=== PATIENT | female | born 1990 | race Caucasian/White ===

== ENCOUNTER 2016-10-10 15:11 | Emergency (ER) | payer SELFPAY ==
[~2016-10-10] VITALS: Ht 165.1 cm; Wt 99.8 kg
[~2016-10-10 15:11] MED LIST: BENZ200C39 PO; DOXY100C2 PO; OXYC-323 PO; PRED20TA PO; PROAIR HFA8.5 GM INH
[2016-10-10 15:15] VITALS: BP 155/89
[2016-10-10] MEDS ORDERED: BUPIVACAINE 0.5% 50 ML VIAL. IJ ONE (16:45)
[2016-10-10] MEDS ORDERED: HYDR-971 PO (17:18)
--- NOTE | 2016-10-10 17:18 | PHYS DOC ---
Past Medical History Past Medical History: Other Additional Past Medical Histor: labial abscesses, ovarian cysts Past Surgical History: No Surgical History Alcohol Use: Occasionally Drug Use: None Adult General Chief Complaint Chief Complaint: ABSCESS HPI HPI Patient is a 26 year old female who presents with a Bartholin's cyst to the left labia for 3 days. Patient has history of Bartholin's cyst. Review of Systems Review of Systems Constitutional: Denies fever or chills [] Eyes: Denies change in visual acuity, redness, or eye pain [] HENT: Denies nasal congestion or sore throat [] Musculoskeletal: Denies back pain or joint pain [] Integument: Bathroom cyst of the left labia Neurologic: Denies headache, focal weakness or sensory changes [] Endocrine: Denies polyuria or polydipsia [] Current Medications Current Medications Current Medications Medications (Trade) Dose Ordered Sig/Martir Start Time Stop Time Status Last Admin Dose Admin Bupivacaine HCl (Marcaine 0.5%) 50 ml 1X ONCE 10/10/16 16:45 10/10/16 16:46 DC 10/10/16 16:32 50 ML Allergies Allergies Allergies Coded Allergies Type Severity Reaction Last Updated Verified sulfamethoxazole Allergy Intermediate Hives 10/10/16 Yes trimethoprim Allergy Intermediate Hives 10/10/16 Yes hydrocodone Adverse Reaction Unknown Excessive vomiting. 10/10/16 Yes Physical Exam Physical Exam Constitutional: Well developed, well nourished, no acute distress, non-toxic appearance. [] HENT: Normocephalic, atraumatic, bilateral external ears normal, oropharynx moist, no oral exudates, nose normal. [] Skin: left labia is moderately indurated consistent with a Bartholin's cyst. There is no erythema to the area. No warmth to the area. Back: No tenderness, no CVA tenderness. [] Extremities: No tenderness, no cyanosis, no clubbing, ROM intact, no edema. [] Neurologic: Alert and oriented X 3, normal motor function, normal sensory function, no focal deficits noted. [] Psychologic: Affect normal, judgement normal, mood normal. [] Current Patient Data Vital Signs Vital Signs Date Time Temp Pulse Resp B/P Pulse Ox O2 Delivery O2 Flow Rate FiO2 10/10/16 15:15 98.6 109 18 99 Room Air 98.6 EKG EKG [] Radiology/Procedures Radiology/Procedures Indication: left labial Bartholin cyst Procedure: The patient was placed in the appropriate position and anesthesia around the system 0.5% of bupivacaine. The area was cleaned with the 100 ML of normal saline and Betadine. 11 blade was used to open up the cyst, moderate amount of yellow nonpurulent material was drained. Bartholin's cyst catheter was placed. Course & Med Decision Making Course & Med Decision Making Pertinent Labs and Imaging studies reviewed. (See chart for details) Patient has a Bartholin's cyst to the left labia that was drained and Bartholin cyst catheter applied by me. Her tetanus is up-to-date. The area does not look infected. Instructed patient to keep the area clean and dry. Follow-up with the ED in 2 days for catheter removal as well as wound check. Dragon Disclaimer Dragon Disclaimer This electronic medical record was generated, in whole or in part, using a voice recognition dictation system. Departure Departure Impression: Primary Impression: Bartholin cyst Disposition: HOME, SELF-CARE Condition: STABLE Referrals: NO PCP (PCP) Follow-up with the ED in 2 days for wound check and Bartholin cyst catheter removal Patient Instructions: Bartholin's Cyst or Abscess Additional Instructions: You have a left labial Bartholin cyst that was drained in the emergency room. We did put a Bartholin cyst catheter in the area. Keep the area clean and dry. You can shower. Come back to the ED in 2 days and we will remove the catheter as well as assess the wound to make sure it's healing okay. Take the prescribed pain medicines as needed. Scripts Hydrocodone/Apap 5-325 (Harts 5-325 Tablet)1 Each Tablet1-2 Tab PO Q4-6HRS #20 TAB Prov:LIANA JOHNS APRN 10/10/16 LIANA JOHNS APRN Oct 10, 2016 17:18
== END 2016-10-10 17:28 | disposition home or self-care (01) ==
LOC: ER 15:11
DX: N75.0 Cyst of Bartholin's gland (principal); Z88.1 Allergy status to other antibiotic agents; Z88.5 Allergy status to narcotic agent; Z88.2 Allergy status to sulfonamides
CPT/HCPCS: 56420; 99284; J3490

== ENCOUNTER 2016-10-12 10:03 | Emergency (ER) | payer SELFPAY ==
[~2016-10-12] VITALS: Ht 165.1 cm; Wt 99.8 kg
[~2016-10-12 10:03] MED LIST changes: +HYDR-971 PO
[2016-10-12 10:42] VITALS: BP 143/80
[2016-10-12] MEDS ORDERED: HYDR-971 PO (11:22)
--- NOTE | 2016-10-12 11:22 | PHYS DOC ---
Past Medical History Past Medical History: No Pertinent History Additional Past Medical Histor: labial abscesses, ovarian cysts Past Surgical History: No Surgical History Smoking: Less than 1pk/day Alcohol Use: Occasionally Drug Use: None Adult General Chief Complaint Chief Complaint: WOUND RECHECK/SUTURE REMOVAL [facility] HPI Patient is a 26 year old female who presents for wound recheck of left labial Bartholin's cyst. The patient was seen here 2 days ago with incision and drainage and placement of a Word catheter. She was instructed to return today for wound recheck and catheter removal. She states that the catheter is very uncomfortable, particularly when she is sitting. She denies any fevers. She does not have a primary care doctor or a [facility] doctor. She tried to schedule an appointment with a coining press operator at [facility] [place] but was unable to be seen until the end of October. Review of Systems Review of Systems Constitutional: Denies fever or chills. [] GI: Denies abdominal pain, nausea, vomiting, bloody stools or diarrhea. [] : Denies dysuria, hematuria or urinary frequency. Reports left labial Bartholin's cyst. Musculoskeletal: Denies back pain or joint pain. [] Integument: Denies rash or skin lesions. Reports left labial Bartholin's cyst. Neurologic: Denies headache, focal weakness or sensory changes. [] All systems reviewed and negative unless otherwise stated in the HPI. Allergies Allergies Allergies Coded Allergies Type Severity Reaction Last Updated Verified sulfamethoxazole Allergy Intermediate Hives 10/10/16 Yes trimethoprim Allergy Intermediate Hives 10/10/16 Yes hydrocodone Adverse Reaction Unknown Excessive vomiting. 10/10/16 Yes Physical Exam Physical Exam Constitutional: Well developed, well nourished, no acute distress, non-toxic appearance. [] HENT: Normocephalic, atraumatic, oropharynx moist. [] Eyes: PERRLA, EOMI, conjunctiva normal, no discharge. [] Neck: Normal range of motion, no tenderness, supple, no stridor. [] Cardiovascular: Heart rate regular rhythm, no murmur. [] Lungs & Thorax: Bilateral breath sounds clear to auscultation without wheezes, rales, or rhonchi. [] Abdomen: Bowel sounds normal, soft, no tenderness, no masses, no pulsatile masses. [] Female : There is a left labial Bartholin's cyst with Word catheter in place. There is no surrounding erythema or induration. There is no drainage. Skin: Warm, dry, no erythema, no rash. See female . Neurologic: Alert and oriented X 3, normal motor function, normal sensory function, no focal deficits noted. [] Psychologic: Affect normal, judgement normal, mood normal. [] Current Patient Data Vital Signs Vital Signs Date Time Temp Pulse Resp B/P Pulse Ox O2 Delivery O2 Flow Rate FiO2 10/12/16 10:42 98.2 84 18 93 Room Air 98.2 EKG EKG [] Radiology/Procedures Radiology/Procedures [] Course & Med Decision Making Course & Med Decision Making Pertinent Labs and Imaging studies reviewed. (See chart for details) The patient presents for wound recheck of left Bartholin's cyst with word catheter in place. The wound reveals good healing without surrounding erythema or induration. There is no drainage from the wound. The catheter remains in place. I informed the patient that they catheter needs to stay in place for 4-6 weeks. She needs to follow-up with a coining press operator to have the catheter removed. She is unable to see a coining press operator until the end of October. She is instructed to schedule and keep this appointment, as this will be catheter removal. She is discharged home with a refill of Caroline. She is instructed to use sparingly and to take a stool softener with the pain medication. Return precautions were discussed. She verbalizes understanding and agrees with plan. Jose Manuelon Disclaimer Jose Manuelon Disclaimer This electronic medical record was generated, in whole or in part, using a voice recognition dictation system. Departure Departure Impression: Primary Impression: Wound check, abscess Additional Impression: Bartholin cyst Disposition: 01 HOME, SELF-CARE Condition: STABLE Referrals: NO PCP (PCP) Patient Instructions: Bartholin's Cyst and Abscess-Brief, Wound Check Additional Instructions: You were seen for wound recheck of your Bartholin's cyst. The catheter needs to stay in place for 4-6 weeks. Please schedule an appointment with a coining press operator to have the catheter removed. Please take the prescribed pain medication as directed. Do not drive or operate heavy machinery while taking pain medication. Return to the emergency department if you have any new or concerning symptoms. Scripts Hydrocodone/Apap 5-325 (Caroline 5-325 Tablet)1 Each Tablet1 Tab PO PRN Q6HRS PRN PAIN #20 TAB Prov:HOMERO AUGUSTE 10/12/16 Problem Qualifiers HOMERO AUGUSTE Oct 12, 2016 11:22
== END 2016-10-12 11:41 | disposition home or self-care (01) ==
LOC: ER 10:03
DX: Z48.01 Encounter for change or removal of surgical wound dressing (principal); N75.0 Cyst of Bartholin's gland; F17.200 Nicotine dependence, unspecified, uncomplicated; Z88.1 Allergy status to other antibiotic agents; Z88.5 Allergy status to narcotic agent
CPT/HCPCS: 99283

== ENCOUNTER 2017-06-06 18:36 | Emergency (ER) | payer SELFPAY ==
[~2017-06-06] VITALS: Ht 165.1 cm; Wt 99.8 kg
[~2017-06-06 18:36] MED LIST changes: -BENZ200C39 PO; +BENZ200C47 PO
[2017-06-06] MEDS ORDERED: hydrOXYzine PAMOATE 25 MG CAPSULE PO STA (19:19)
--- NOTE | 2017-06-06 19:29 | PHYS DOC ---
Past Medical History Past Medical History: Other Additional Past Medical Histor: labial abscesses, ovarian cysts Past Surgical History: No Surgical History Alcohol Use: Occasionally Drug Use: None Adult General Chief Complaint Chief Complaint: ANXIETY/PANIC ATTACK HPI HPI Patient is a 27 year old female who presents with complaint of chest pain. Patient states that she has had pain in the middle of her chest over the past 4 hours. The patient states that she is also had dry mouth and has been having hyperventilation. The patient states that she unfortunately lost her father approximately 1 month ago. Patient states that she has had history of anxiety, however since her father's passing and has gotten much worse. The patient states that she has not slept over the past 2 days. Patient has tried taking Benadryl at home with no relief in symptoms. Patient denies any significant past medical history of cardiac disease and denies heart disease in any young members of her family. The patient does state that she feels anxious and states that she thinks this is likely contributing to her current symptoms, however she came to the emergency department to be checked out to make sure she did not have anything possibly life-threatening causing her symptoms. Patient states that she has been under a significant amount of stress at home and does admit that she has not had not time to be able to deal with her emotions in regard to her father passing. Review of Systems Review of Systems Constitutional: Anxiety, insomnia, denies fever or chills [] Eyes: Denies change in visual acuity, redness, or eye pain [] HENT: Dry mouth, denies nasal congestion or sore throat [] Respiratory: Denies cough or shortness of breath [] Cardiovascular: Chest pain[] GI: Denies abdominal pain, nausea, vomiting, bloody stools or diarrhea [] : Denies dysuria or hematuria [] Musculoskeletal: Denies back pain or joint pain [] Integument: Denies rash or skin lesions [] Neurologic: Denies headache, focal weakness or sensory changes [] All other systems were reviewed and found to be within normal limits, except as documented in this note. Current Medications Current Medications Current Medications Medications (Trade) Dose Ordered Sig/Martir Start Time Stop Time Status Last Admin Dose Admin Hydroxyzine Pamoate (Vistaril) 25 mg 1X STAT 06/06/17 19:19 06/06/17 19:21 DC 06/06/17 19:25 25 MG Allergies Allergies Allergies Coded Allergies Type Severity Reaction Last Updated Verified sulfamethoxazole Allergy Intermediate Hives 10/10/16 Yes trimethoprim Allergy Intermediate Hives 10/10/16 Yes hydrocodone Adverse Reaction Unknown Excessive vomiting. 10/10/16 Yes Physical Exam Physical Exam Constitutional: Alert, afebrile, tearful, anxious. [] HENT: Normocephalic, atraumatic, bilateral external ears normal, oropharynx moist, no oral exudates, nose normal. [] Eyes: PERRLA, EOMI, conjunctiva normal, no discharge. [] Neck: Normal range of motion, no tenderness, supple, no stridor. [] Cardiovascular:Heart rate regular rhythm, no murmur [] Lungs & Thorax: Bilateral breath sounds clear to auscultation [] Abdomen: Bowel sounds normal, soft, no tenderness, no masses, no pulsatile masses. [] Skin: Warm, dry, no erythema, no rash. [] Back: No tenderness, no CVA tenderness. [] Extremities: No tenderness, no cyanosis, no clubbing, ROM intact, no edema. [] Neurologic: Alert and oriented X 3, normal motor function, normal sensory function, no focal deficits noted. [] Current Patient Data Vital Signs Vital Signs Date Time Temp Pulse Resp B/P (MAP) Pulse Ox O2 Delivery O2 Flow Rate FiO2 06/06/17 19:45 79 141/77 (98) 98 Room Air 06/06/17 18:51 98.1 16 98.1 Lab Values Laboratory Tests Test 06/06/17 19:42 POC Urine HCG, Qualitative Hcg negative (Negative) EKG EKG Interpreted by me: Heart rate 91, sinus rhythm, normal intervals, normal axis, no acute ST/T-wave abnormalities present[] Radiology/Procedures Radiology/Procedures Two-view chest x-ray interpreted by me: No infiltrate, no effusions, normal cardiac silhouette[] Course & Med Decision Making Course & Med Decision Making Pertinent Labs and Imaging studies reviewed. (See chart for details) Patient's EKG and chest x-ray were unremarkable. Patient's HEART score is 0. Vital signs are stable. The patient's symptoms appear consistent with anxiety. I sat and spoke with the patient extensively regarding her symptoms and the recent loss of her father. We discussed possible coping mechanisms and a plan of care upon discharge from the emergency department. The patient denied suicidal or homicidal ideation. The patient was administered hydroxyzine to help with anxiety in the emergency department. Patient will be continued on outpatient treatment. Patient also referred to [facility] family practice for primary care follow-up. Advised follow-up in 5-7 days for reevaluation and recommended return to the emergency department for any worsening symptoms. Patient voiced understanding and in agreement with treatment plan. Dragon Disclaimer Dragon Disclaimer This electronic medical record was generated, in whole or in part, using a voice recognition dictation system. Departure Departure Impression: Primary Impression: Anxiety Disposition: HOME, SELF-CARE Condition: IMPROVED Referrals: NO PCP (PCP) Patient Instructions: Anxiety and Panic Attacks Additional Instructions: Follow-up with your primary doctor in 5-7 days for reevaluation. Return to the emergency department for any worsening symptoms. Scripts Hydroxyzine Pamoate (HYDROXYZINE PAMOATE) 25 Mg Capsule 25 MG PO QID Y for ANXIETY / AGITATION, #30 CAP Prov: JOEL HENDRICKS MD 06/06/17 JOEL HENDRICKS MD Jun 06, 2017 19:29
[2017-06-06 19:45] VITALS: BP 141/77
[2017-06-06] MEDS ORDERED: HYDR25CA75 PO (20:18)
--- NOTE | 2017-06-07 06:37 | EKG ---
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
--- NOTE | 2017-06-07 07:42 | RAD ---
Chest, 2 views, 06/06/2017: History: Midsternal chest pain The heart size and pulmonary vascularity are normal. No pulmonary infiltrates are seen. There is no evidence of pleural fluid. IMPRESSION: No acute cardiopulmonary abnormality is detected.
== END 2017-06-06 20:28 | disposition home or self-care (01) ==
LOC: ER 18:36
DX: F41.9 Anxiety disorder, unspecified (principal); R07.89 Other chest pain; R68.2 Dry mouth, unspecified; R06.4 Hyperventilation; Z88.1 Allergy status to other antibiotic agents; Z88.2 Allergy status to sulfonamides; Z88.5 Allergy status to narcotic agent
CPT/HCPCS: 71020; 81025; 93005; 99284; Q0177

== ENCOUNTER 2018-01-14 04:25 | Emergency (ER) | payer SELFPAY ==
[2018-01-14 04:54] LABS: URINE HCG POC HCG NEGATIVE (Negative)
[2018-01-14 06:03] LABS: BILIRUBIN,URINE NEGATIVE (NEG); CLARITY,URINE CLEAR; COLOR,URINE YELLOW; GLUCOSE,URINE NEGATIVE (NEG); NITRITE,URINE NEGATIVE (NEG); PH,URINE 7.5; PROTEIN,URINE NEGATIVE (NEG-TRACE); UROBILINOGEN,URINE 0.2 mg/dL (0.2 mg/dL)
[2018-01-14 06:10] LABS: AMORPHOUS SEDIMENT,UR PRESENT /HPF; SQUAMOUS EPITHELIAL CELL,UR FEW /LPF
[2018-01-14 06:11] LABS: BACTERIA,URINE FEW /HPF (0-FEW); RBC,URINE 0 /HPF (0-2); WBC,URINE OCC /HPF (0-4)
[2018-01-14] MEDS: ONDANSETRON PF 4 MG/2 ML VIAL. IV (06:11)
[2018-01-14] MEDS: NALBUPHINE 10 MG/ML AMPUL. IV (06:11)
[2018-01-14] MEDS: DEXAMETHASONE SOD PHOS 20 MG/5 ML VIAL. IV (07:51)
[2018-01-14] MEDS: METOCLOPRAMIDE HCL 10 MG/2 ML VIAL. IV (07:51)
[2018-01-14] MEDS: KETOROLAC 30 MG/ML INJ. IV (07:51)
[2018-01-14] MEDS: diphenhydrAMINE 50 MG/ML VIAL IVP (07:52)
[2018-01-14] MEDS: IV NORMAL SALINE 1000ML BAG 1,000 ML IV (07:58)
== END 2018-01-14 08:50 | disposition home or self-care (01) ==
LOC: ER 04:25
DX: R51 Headache (principal); R11.2 Nausea with vomiting, unspecified; H53.149 Visual discomfort, unspecified; Z88.2 Allergy status to sulfonamides; Z88.5 Allergy status to narcotic agent
CPT/HCPCS: 70450; 81001; 81025; 96374; 96375; 99285-25; J1100; J1200; J1885; J2300; J2405; J2765; J7030

== ENCOUNTER 2018-07-24 11:58 | Emergency (ER) | payer SELFPAY ==
[~2018-07-24] VITALS: Ht 167.6 cm; Wt 77.1 kg
[~2018-07-24 11:58] MED LIST changes: +ALBU2.5V8 INH; +BUTA1TAB23 PO; +CLIN300C3 PO; +HYDR-3164 PO; -HYDR-971 PO; +HYDR25CA75 PO; +ONDA4TAB10 SL; -OXYC-323 PO; +OXYC1TAB15 PO; -PROAIR HFA8.5 GM INH; +TRAM50TA PO
[2018-07-24 12:18] VITALS: BP 134/70
[2018-07-24] MEDS ORDERED: KETOROLAC 30 MG/ML VIAL. IM ONE (12:45)
[2018-07-24] MEDS ORDERED: PENICILLIN V K 250 MG TABLET. PO ONE (12:45)
[2018-07-24] MEDS ORDERED: DEXAMETHASONE 4 MG TABLET PO ONE (12:45)
[2018-07-24] MEDS ORDERED: BUPIVAC MPF-EPI 0.5%-1:200000 30 ML VIAL. INJ ONE (12:45)
--- NOTE | 2018-07-24 13:10 | PHYS DOC ---
Past Medical History Past Medical History: Other Additional Past Medical Histor: labial abscesses, ovarian cysts Past Surgical History: No Surgical History Alcohol Use: Occasionally Drug Use: None Adult General Chief Complaint Chief Complaint: HEADACHE HPI HPI Patient is a 28 YO F that is presenting with a 1 week history of left sided head pain that is originating from her tooth that she said has been broken. Patient has history of migraines but says that this pain is different than that. She denies sensitivity to light or sound, prodromal symptoms, focal neurologic deficits, and nausea/vomiting. She denies radiation of the pain, and describes it as episodes of sharp pain that are made worse by eating on that side of her mouth. She states that she has known about this tooth for awhile but doesn't have the money to get it taken care of at the the dentist. Patient denies trauma. Review of Systems Review of Systems Constitutional: Denies fever or chills [] Eyes: Denies change in visual acuity, redness, or eye pain [] HENT: Denies nasal congestion or sore throat [] Respiratory: Denies cough or shortness of breath [] Cardiovascular: Denies chest pain or palpitations [] GI: Denies abdominal pain, nausea, vomiting, or diarrhea [] Integument: Denies rash or skin lesions [] Neurologic: Denies headache, focal weakness or sensory changes [] Complete systems were reviewed and found to be within normal limits, except as documented in this note. Current Medications Current Medications Current Medications Medications (Trade) Dose Ordered Sig/Martir Start Time Stop Time Status Last Admin Dose Admin Bupivacaine HCl/ Epinephrine Bitart (Sensorcain-Mpf Epi 0.5%-1:325352) 30 ml 1X ONCE 07/24/18 12:45 07/24/18 13:19 DC 07/24/18 12:48 30 ML Dexamethasone (Decadron) 10 mg 1X ONCE 07/24/18 12:45 07/24/18 12:46 DC 07/24/18 12:45 10 MG Ketorolac Tromethamine (Toradol 30mg Vial) 30 mg 1X ONCE 07/24/18 12:45 07/24/18 12:46 DC 07/24/18 12:45 30 MG Penicillin V Potassium (Veetid) 500 mg 1X ONCE 07/24/18 12:45 07/24/18 12:46 DC 07/24/18 12:45 500 MG Allergies Allergies Allergies Coded Allergies Type Severity Reaction Last Updated Verified sulfamethoxazole Allergy Intermediate Hives 12/06/17 Yes trimethoprim Allergy Intermediate Hives 12/06/17 Yes hydrocodone Adverse Reaction Intermediate Excessive vomiting. 12/06/17 Yes Physical Exam Physical Exam Constitutional: Well developed, well nourished, no acute distress, non-toxic appearance. [] HENT: Normocephalic, atraumatic, broken left 1st maxillary molar with surrounding inflammation, nose normal. [] Eyes: Conjunctiva normal, no discharge. [] Neck: Normal range of motion, no tenderness, supple. [] Cardiovascular: Heart rate regular rhythm, no murmur [] Lungs & Thorax: Bilateral breath sounds clear to auscultation [] Skin: Warm, dry, no erythema, no rash. [] Neurologic: Alert and oriented X 3, no focal deficits noted. [] Psychologic: Affect normal, judgement normal, mood normal. [] Current Patient Data Vital Signs Vital Signs Date Time Temp Pulse Resp B/P (MAP) Pulse Ox O2 Delivery O2 Flow Rate FiO2 07/24/18 12:18 99.0 89 16 134/70 (91) 95 Room Air 99.0 Lab Values Laboratory Tests Test 07/24/18 12:53 POC Urine HCG, Qualitative Hcg negative (Negative) EKG EKG [] Radiology/Procedures Radiology/Procedures [] Course & Med Decision Making Course & Med Decision Making Pertinent Labs and Imaging studies reviewed. (See chart for details) Patient is a 28 YO F that presents with left sided head and dental pain that has lasted about 1 week. History and physical exam indicates that the pain is most likely dental in nature. Steroids offered for inflammation and irritation, ketorolac offered for pain, penicillin administered for dental infection prophylaxis. Discussed the possibility of a dental block for pain but the patient denied. Offered education and resources for dental follow-up and management. Patient stable for discharge with outpatient follow-up with PCP. Discussed findings and plan with patient, who acknowledges understanding and agreement. Dragon Disclaimer Dragon Disclaimer This electronic medical record was generated, in whole or in part, using a voice recognition dictation system. Departure Departure Impression: Primary Impression: Headache Additional Impression: Dentalgia Disposition: HOME, SELF-CARE Condition: STABLE Referrals: NO PCP (PCP) Patient Instructions: Headache, FAQs, Toothache-Brief Scripts Chlorhexidine Gluconate (PERIDEX) 15 Ml Mouthwash 15 ML PO BID, #946 ML Prov: PAAP GUTIÉRREZ DO 07/24/18 Penicillin V Potassium (PENICILLIN V POTASSIUM) 500 Mg Tablet 1 TAB PO QID for 10 Days, #40 TAB Prov: PAPA GUTIÉRREZ DO 07/24/18 Problem Qualifiers Primary Impression: Headache Headache type: unspecified Headache chronicity pattern: acute headache Intractability: not intractable Qualified Codes: R51 - Headache PAPA GUTIÉRREZ DO Jul 24, 2018 13:10
[2018-07-24] MEDS ORDERED: CHLO15MO2 PO (13:24)
[2018-07-24] MEDS ORDERED: PENI500T PO (13:24)
== END 2018-07-24 13:33 | disposition home or self-care (01) ==
LOC: ER 11:58
DX: R51 Headache (principal); R68.84 Jaw pain; K08.89 Other specified disorders of teeth and supporting structures; G43.909 Migraine, unspecified, not intractable, without status migrainosus; Z88.1 Allergy status to other antibiotic agents; Z88.2 Allergy status to sulfonamides; Z88.5 Allergy status to narcotic agent
CPT/HCPCS: 81025; 96372; 99283; J1885; J3490; J8540

== ENCOUNTER 2018-09-23 13:36 | Emergency (ER) | payer SELFPAY ==
[~2018-09-23] VITALS: Ht 165.1 cm; Wt 79.4 kg
[~2018-09-23 13:36] MED LIST changes: +CHLO15MO2 PO; +PENI500T PO
[2018-09-23 13:47] VITALS: BP 140/83
[2018-09-23] MEDS ORDERED: CLOT15CR5 TP (14:24)
--- NOTE | 2018-09-23 14:25 | PHYS DOC ---
Past Medical History Past Medical History: Bartholin Cyst, Other Additional Past Medical Histor: ovarian cysts Past Surgical History: Other Additional Past Surgical Histo: I & D FOR BARTHOLIN CYST Additional Information: 1/2 PACK/DAY Alcohol Use: Rarely Drug Use: None Adult General Chief Complaint Chief Complaint: SKIN RASH/ABSCESS [facility] HPI Patient is a 28 year old female who presents with a rash to her groin extending into her buttocks. She has been using hydrocortisone with no relief. Review of Systems Review of Systems Constitutional: Denies fever or chills [] Respiratory: Denies cough or shortness of breath [] Cardiovascular: No additional information not addressed in HPI [] GI: Denies abdominal pain, nausea, vomiting, bloody stools or diarrhea [] : Denies dysuria or hematuria [] Musculoskeletal: Denies back pain or joint pain [] Integument: See HPI Neurologic: Denies headache, focal weakness or sensory changes [] Endocrine: Denies polyuria or polydipsia [] All other systems were reviewed and found to be within normal limits, except as documented in this note. Allergies Allergies Allergies Coded Allergies Type Severity Reaction Last Updated Verified sulfamethoxazole Allergy Intermediate Hives 12/06/17 Yes trimethoprim Allergy Intermediate Hives 12/06/17 Yes hydrocodone Adverse Reaction Intermediate Excessive vomiting. 12/06/17 Yes Physical Exam Physical Exam Constitutional: Well developed, well nourished, no acute distress, non-toxic appearance. [] Cardiovascular:Heart rate regular rhythm, no murmur [] Lungs & Thorax: Bilateral breath sounds clear to auscultation [] Abdomen: Bowel sounds normal, soft, no tenderness, no masses, no pulsatile masses. [] Skin: erythematous rash with a yeast like appearance to bilateral inner thighs and groin Back: No tenderness, no CVA tenderness. [] Extremities: No tenderness, no cyanosis, no clubbing, ROM intact, no edema. [] Neurologic: Alert and oriented X 3, normal motor function, normal sensory function, no focal deficits noted. [] Psychologic: Affect normal, judgement normal, mood normal. [] Current Patient Data Vital Signs EKG EKG [] Radiology/Procedures Radiology/Procedures [] Course & Med Decision Making Course & Med Decision Making Pertinent Labs and Imaging studies reviewed. (See chart for details) [] Dragon Disclaimer Dragon Disclaimer This electronic medical record was generated, in whole or in part, using a voice recognition dictation system. Departure Departure Impression: Primary Impression: Rash and nonspecific skin eruption Disposition: HOME, SELF-CARE Condition: STABLE Referrals: NO PCP (PCP) Patient Instructions: Rash Additional Instructions: Use the cream as directed. If the rash is persisting after 2 weeks follow-up with your primary care provider for possible referral to dermatology. Scripts Clotrimazole/Betamethasone Dip (CLOTRIMAZOLE-BETAMETHASONE CRM) 15 Gm Cream..g. 1 SHELIA TP BID for rash, #30 GM 1 Refill Prov: TATUM SCHAEFER APRN 09/23/18 TATUM SCHAEFER APRN Sep 23, 2018 14:25
== END 2018-09-23 14:43 | disposition home or self-care (01) ==
LOC: ER 13:36
DX: R21 Rash and other nonspecific skin eruption (principal); F17.200 Nicotine dependence, unspecified, uncomplicated; Z88.2 Allergy status to sulfonamides; Z88.5 Allergy status to narcotic agent; Z88.1 Allergy status to other antibiotic agents
CPT/HCPCS: 99283

== ENCOUNTER 2019-02-06 05:51 | Emergency (ER) | payer SELFPAY ==
[~2019-02-06] VITALS: Ht 152.4 cm; Wt 77.1 kg
[~2019-02-06 05:51] MED LIST changes: +CLOT15CR5 TP
[2019-02-06 08:43] LABS: BILIRUBIN,URINE NEGATIVE (NEG); CLARITY,URINE CLEAR; COLOR,URINE YELLOW; NITRITE,URINE NEGATIVE (NEG); PROTEIN,URINE NEGATIVE (NEG-TRACE); UROBILINOGEN,URINE 0.2 mg/dL (0.2 mg/dL)
--- NOTE | 2019-02-06 08:51 | PHYS DOC ---
Past Medical History Past Medical History: Bartholin Cyst, Other Additional Past Medical Histor: ovarian cysts Past Surgical History: Other Additional Past Surgical Histo: I & D FOR BARTHOLIN CYST Alcohol Use: Rarely Drug Use: None Adult General Chief Complaint Chief Complaint: ANXIETY/PANIC ATTACK HPI HPI Patient is a 28 year old female in no significant medical history who presents this morning complaining of her heart racing. Patient states she was awoken at 3 AM with her heart racing. Patient states she tried sitting on the edge of the bed with no relief of her symptoms. She states she also developed some pain on her left ribs, she is unable to rate the pain when it happened. She states the pain has subsided. She states she feels slightly better. She states she's had similar symptoms before and was evaluated in the ED and informed she has anxiety. She states she never followed up for her anxiety. Denies any suicidal or homicidal ideations. Denies being on any maintenance anxiety medications. Review of Systems Review of Systems Constitutional: Denies fever or chills [] Eyes: Denies change in visual acuity, redness, or eye pain [] HENT: Denies nasal congestion or sore throat [] Respiratory: Denies cough or shortness of breath [] Cardiovascular: Reports chest pain/left rib pain that has subsided GI: Denies abdominal pain, nausea, vomiting, bloody stools or diarrhea [] : Denies dysuria or hematuria [] Musculoskeletal: Denies back pain or joint pain [] Integument: Denies rash or skin lesions [] Neurologic: Denies headache, focal weakness or sensory changes [] Endocrine: Denies polyuria or polydipsia [] All other systems were reviewed and found to be within normal limits, except as documented in this note. Allergies Allergies Allergies Coded Allergies Type Severity Reaction Last Updated Verified sulfamethoxazole Allergy Intermediate Hives 12/06/17 Yes trimethoprim Allergy Intermediate Hives 12/06/17 Yes hydrocodone Adverse Reaction Intermediate Excessive vomiting. 12/06/17 Yes Physical Exam Physical Exam Constitutional: Well developed, well nourished, no acute distress, non-toxic appearance. [] HENT: Normocephalic, atraumatic, bilateral external ears normal, oropharynx moist, no oral exudates, nose normal. [] Eyes: PERRLA, EOMI, conjunctiva normal, no discharge. [] Neck: Normal range of motion, no tenderness, supple, no stridor. [] Cardiovascular:Heart rate regular rhythm, no murmur [] Lungs & Thorax: Bilateral breath sounds clear to auscultation [] Abdomen: Bowel sounds normal, soft, no tenderness, no masses, no pulsatile masses. [] Skin: Warm, dry, no erythema, no rash. [] Back: No tenderness, no CVA tenderness. [] Extremities: No tenderness, no cyanosis, no clubbing, ROM intact, no edema. [] Neurologic: Alert and oriented X 3, normal motor function, normal sensory function, no focal deficits noted. [] Psychologic: Calm. Affect normal, judgement normal, mood normal. [] Current Patient Data Vital Signs Vital Signs Date Time Temp Pulse Resp B/P (MAP) Pulse Ox O2 Delivery O2 Flow Rate FiO2 02/06/19 10:00 98.2 72 16 122/72 (89) 98 Room Air 98.2 Lab Values Laboratory Tests Test 02/06/19 08:19 02/06/19 08:28 02/06/19 09:58 Urine Collection Type Unknown Urine Color Yellow Urine Clarity Clear Urine pH 6.0 Urine Specific [place] 1.020 Urine Protein Negative mg/dL (NEG-TRACE) Urine Glucose (UA) Negative mg/dL (NEG) Urine Ketones (Stick) Negative mg/dL (NEG) Urine Blood Negative (NEG) Urine Nitrite Negative (NEG) Urine Bilirubin Negative (NEG) Urine Urobilinogen Dipstick 0.2 mg/dL (0.2 mg/dL) Urine Leukocyte Esterase Small (NEG) Urine RBC 0 /HPF (0-2) Urine WBC 1-4 /HPF (0-4) Urine Squamous Epithelial Cells Mod /LPF Urine Amorphous Sediment Present /HPF Urine Bacteria Few /HPF (0-FEW) Urine Mucus Slight /LPF Urine Opiates Screen Neg (NEG) Urine Methadone Screen Neg (NEG) Urine Barbiturates Neg (NEG) Urine Phencyclidine Screen Neg (NEG) Urine Amphetamine/Methamphetamine Neg (NEG) Urine Benzodiazepines Screen Neg (NEG) Urine Cocaine Screen Neg (NEG) Urine Cannabinoids Screen Pos (NEG) Urine Ethyl Alcohol Neg (NEG) POC Urine HCG, Qualitative Hcg negative (Negative) White Blood Count 6.9 x10^3/uL (4.0-11.0) Red Blood Count 5.22 x10^6/uL (3.50-5.40) Hemoglobin 15.8 g/dL (12.0-15.5) H Hematocrit 46.2 % (36.0-47.0) Mean Corpuscular Volume 89 fL (79-100) Mean Corpuscular Hemoglobin 30 pg (25-35) Mean Corpuscular Hemoglobin Concent 34 g/dL (31-37) Red Cell Distribution Width 14.2 % (11.5-14.5) Platelet Count 219 x10^3/uL (140-400) Neutrophils (%) (Auto) 72 % (31-73) Lymphocytes (%) (Auto) 21 % (24-48) L Monocytes (%) (Auto) 6 % (0-9) Eosinophils (%) (Auto) 1 % (0-3) Basophils (%) (Auto) 1 % (0-3) Neutrophils # (Auto) 4.9 x10^3/uL (1.8-7.7) Lymphocytes # (Auto) 1.5 x10^3/uL (1.0-4.8) Monocytes # (Auto) 0.4 x10^3/uL (0.0-1.1) Eosinophils # (Auto) 0.1 x10^3/uL (0.0-0.7) Basophils # (Auto) 0.1 x10^3/uL (0.0-0.2) Sodium Level 140 mmol/L (136-145) Potassium Level 4.4 mmol/L (3.5-5.1) Chloride Level 104 mmol/L (98-107) Carbon Dioxide Level 25 mmol/L (21-32) Anion Gap 11 (6-14) Blood Urea Nitrogen 12 mg/dL (7-20) Creatinine 0.8 mg/dL (0.6-1.0) Estimated GFR (Cockcroft-Gault) 86.0 BUN/Creatinine Ratio 15 (6-20) Glucose Level 93 mg/dL (70-99) Calcium Level 9.1 mg/dL (8.5-10.1) Magnesium Level 1.9 mg/dL (1.8-2.4) Total Bilirubin 0.4 mg/dL (0.2-1.0) Aspartate Amino Transferase (AST) 17 U/L (15-37) Alanine Aminotransferase (ALT) 27 U/L (14-59) Alkaline Phosphatase 103 U/L (46-116) Creatine Kinase 75 U/L (26-192) Creatine Kinase MB (Mass) < 0.5 ng/mL (0.0-3.6) Creatine Kinase MB Relative Index 0.7 % (0-4) Troponin I Quantitative < 0.017 ng/mL (0.000-0.055) XI-Rbu-A-Type Natriuretic Peptide 105 pg/mL (0-124) Total Protein 7.0 g/dL (6.4-8.2) Albumin 3.5 g/dL (3.4-5.0) Albumin/Globulin Ratio 1.0 (1.0-1.7) Thyroid Stimulating Hormone (TSH) 1.133 uIU/mL (0.358-3.74) Laboratory Tests 02/06/19 09:58 Laboratory Tests 02/06/19 09:58 EKG EKG [address] Cortes sinus rhythm HR 68 no STEMI[] Radiology/Procedures Radiology/Procedures [] Course & Med Decision Making Course & Med Decision Making Pertinent Labs and Imaging studies reviewed. (See chart for details) This is a 28-year-old female patient presenting to the ED today complaining of heart racing that began at 3 AM. She also had chest pain which has subsided. Arrives in the ED feeling better. Heart rate 79, blood pressure in the 120s over 70s. Soha from the PAT team in the ED to see patient, patient given resources for anxiety f/u EKG is negative, labs are negative. Patient feeling better. D/C to home. Dragon Disclaimer Dragon Disclaimer This electronic medical record was generated, in whole or in part, using a voice recognition dictation system. Departure Departure Impression: Primary Impression: Anxiety Disposition: 01 HOME, SELF-CARE Condition: STABLE Referrals: NO PCP (PCP) Follow up with resources provided by the PAT team Patient Instructions: Anxiety and Panic Attacks, [id number] Additional Instructions: You were evaluated the emergency room today, your workup was negative for any acute findings. Please follow-up the resources provided by PAT. We also provided you a list of primary care doctors, you can follow-up with them as well. The HEART Score for CP Pts HEART Score for Chest Pain: HEART Score for Chest Pain Response (Comments) Value History Slighlty/Non-Suspicious 0 ECG Normal 0 Age < 45 0 Risk Factors No Risk Factors 0 Troponin < Normal Limit 0 Total 0 Risk Factors: Risk Factors: DM, Current or recent (<one month) smoker, HTN, HLP, family history of CAD, obesity. Risk Scores: Score 0 - 3: 2.5% MACE over next 6 weeks - Discharge Home Score 4 - 6: 20.3% MACE over next 6 weeks - Admit for Clinical Observation Score 7 - 10: 72.7% MACE over next 6 weeks - Early Invasive Strategies LIANA JOHNS APRN Feb 06, 2019 08:51
[2019-02-06 08:59] LABS: BARBITURATES NEG (NEG); BENZODIAZEPINES NEG (NEG); CANNABINOIDS POS (NEG); COCAINE NEG (NEG); METHADONE NEG (NEG); OPIATES NEG (NEG); PHENCYCLIDINE NEG (NEG)
[2019-02-06 09:00] LABS: AMPHETAMINE/METHAMPHETAMINE NEG (NEG)
[2019-02-06 09:01] LABS: SQUAMOUS EPITHELIAL CELL,UR MOD /LPF
[2019-02-06 09:02] LABS: AMORPHOUS SEDIMENT,UR PRESENT /HPF; BACTERIA,URINE FEW /HPF (0-FEW); RBC,URINE 0 /HPF (0-2)
[2019-02-06 10:04] LABS: BASO # 0.1 x10^3/uL (0.0-0.2); BASO % 1 % (0-3); EOS # 0.1 x10^3/uL (0.0-0.7); EOS % 1 % (0-3); HEMATOCRIT 46.2 % (36.0-47.0); HEMOGLOBIN 15.8 g/dL (12.0-15.5); LYMPH # 1.5 x10^3/uL (1.0-4.8); LYMPH % 21 % (24-48); MEAN CORPUSCULAR HEMOGLOBIN 30 pg (25-35); MEAN CORPUSCULAR HGB CONC 34 g/dL (31-37); MEAN CORPUSCULAR VOLUME 89 fL (79-100); MONO # 0.4 x10^3/uL (0.0-1.1); MONO % 6 % (0-9); NEUT # 4.9 x10^3/uL (1.8-7.7); NEUT % 72 % (31-73); PLATELET COUNT 219 x10^3/uL (140-400); RED BLOOD COUNT 5.22 x10^6/uL (3.50-5.40); RED CELL DISTRIBUTION WIDTH 14.2 % (11.5-14.5); WHITE BLOOD COUNT 6.9 x10^3/uL (4.0-11.0)
[2019-02-06 10:21] LABS: CALCIUM 9.1 mg/dL (8.5-10.1); CREATININE 0.8 mg/dL (0.6-1.0); POTASSIUM 4.4 mmol/L (3.5-5.1)
[2019-02-06 10:26] LABS: ALBUMIN 3.5 g/dL (3.4-5.0); MAGNESIUM 1.9 mg/dL (1.8-2.4); TOTAL BILIRUBIN 0.4 mg/dL (0.2-1.0)
[2019-02-06 10:58] LABS: CREATINE KINASE 75 U/L (26-192)
--- NOTE | 2019-02-06 11:15 | EKG ---
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
[2019-02-06 11:24] VITALS: BP 122/79
== END 2019-02-06 11:48 | disposition home or self-care (01) ==
LOC: ER 05:51
DX: F41.9 Anxiety disorder, unspecified (principal); Z88.1 Allergy status to other antibiotic agents; Z88.5 Allergy status to narcotic agent; Z88.2 Allergy status to sulfonamides
CPT/HCPCS: 36415; 80053; 80307; 81001; 81025; 82553; 83735; 83880; 84443; 84484; 85025; 93005; 99285

== ENCOUNTER 2019-07-02 12:46 | Emergency (ER) | payer SELFPAY ==
[~2019-07-02] VITALS: Ht 165.1 cm; Wt 97.1 kg
[2019-07-02 13:00] VITALS: BP 132/85
--- NOTE | 2019-07-02 13:14 | PHYS DOC ---
Past Medical History Past Medical History: No Pertinent History Additional Past Medical Histor: ovarian cysts Past Surgical History: No Surgical History Additional Past Surgical Histo: I & D FOR BARTHOLIN CYST Alcohol Use: Occasionally Drug Use: None Adult General Chief Complaint Chief Complaint: COUGH HPI HPI Patient is a 29 year old female who presents to the ED today with a productive cough with yellow sputum, congestion symptoms began 3 days ago, she is also complaining of subjective fevers and body aches with chills that began today. Patient is in the ED with the fianc with similar complaints. Review of Systems Review of Systems Constitutional: Reports subjective fever Eyes: Denies change in visual acuity, redness, or eye pain [] HENT: Reports nasal congestion, denies sore throat [] Respiratory: Reports cough, denies shortness of breath [] Cardiovascular: No additional information not addressed in HPI [] GI: Denies abdominal pain, nausea, vomiting, bloody stools or diarrhea [] : Denies dysuria or hematuria [] Musculoskeletal: Denies back pain or joint pain [] Integument: Denies rash or skin lesions [] Neurologic: Denies headache, focal weakness or sensory changes [] All other systems were reviewed and found to be within normal limits, except as documented in this note. Allergies Allergies Allergies Coded Allergies Type Severity Reaction Last Updated Verified sulfamethoxazole Allergy Intermediate Hives 12/06/17 Yes trimethoprim Allergy Intermediate Hives 12/06/17 Yes hydrocodone Adverse Reaction Intermediate Excessive vomiting. 12/06/17 Yes Physical Exam Physical Exam Constitutional: Well developed, well nourished, no acute distress, non-toxic appearance. [] HENT: Normocephalic, atraumatic, bilateral external ears normal, oropharynx moist, no oral exudates, nose normal. [] Eyes: PERRLA, EOMI, conjunctiva normal, no discharge. [] Neck: Normal range of motion, no tenderness, supple, no stridor. [] Cardiovascular:Heart rate regular rhythm, no murmur [] Lungs & Thorax: Bilateral breath sounds clear to auscultation [] Abdomen: Bowel sounds normal, soft, no tenderness, no masses, no pulsatile masses. [] Skin: Warm, dry, no erythema, no rash. [] Back: No tenderness, no CVA tenderness. [] Extremities: No tenderness, no cyanosis, no clubbing, ROM intact, no edema. [] Neurologic: Alert and oriented X 3, normal motor function, normal sensory function, no focal deficits noted. [] Psychologic: Affect normal, judgement normal, mood normal. [] Current Patient Data Vital Signs Vital Signs Date Time Temp Pulse Resp B/P (MAP) Pulse Ox O2 Delivery O2 Flow Rate FiO2 07/02/19 13:00 99.7 113 18 132/85 (101) 98 Room Air 99.7 Lab Values Laboratory Tests Test 07/02/19 13:03 Influenza Type A Antigen Negative (NEGATIVE) Influenza Type B Antigen Positive (NEGATIVE) EKG EKG [] Radiology/Procedures Radiology/Procedures [] Course & Med Decision Making Course & Med Decision Making Pertinent Labs and Imaging studies reviewed. (See chart for details) This is a 29-year-old female patient today with a productive cough and congestion that began 3 days as well as subjective fevers, body aches and chills that began today. Positive for influenza B. Supportive care measures re commended Ruma Disclaimer Dragon Disclaimer This electronic medical record was generated, in whole or in part, using a voice recognition dictation system. Departure Departure Impression: Primary Impression: Cough Additional Impressions: Fever Influenza B Disposition: HOME, SELF-CARE Condition: STABLE Referrals: NO PCP (PCP) followup with your doctor as needed Patient Instructions: Cough, Adult, Upht-mo-Syia, Influenza, Adult Additional Instructions: You tested positive for influenza B. This is a viral illness, it will run its own course. Rest, push fluids, maintain good hand hygiene, take Tylenol every 4 hours and Motrin every 6 hours as needed for fever or pain. You can take [id number] cough medicines as needed. Problem Qualifiers Additional Impressions: Fever Fever type: unspecified Qualified Codes: R50.9 - Fever, unspecified LIANA JOHNS SENIOR GL ACCOUNTANT Jul 02, 2019 13:14
[2019-07-02 13:38] LABS: INFLUENZA A PATIENT NEGATIVE (NEGATIVE)
[2019-07-02 13:39] LABS: INFLUENZA B PATIENT POSITIVE (NEGATIVE)
== END 2019-07-02 13:49 | disposition home or self-care (01) ==
LOC: ER 12:46
DX: J10.1 Influenza due to other identified influenza virus with other respiratory manifestations (principal); R50.9 Fever, unspecified; R05 Cough; R09.81 Nasal congestion; Z98.890 Other specified postprocedural states; Z88.2 Allergy status to sulfonamides; Z88.5 Allergy status to narcotic agent
CPT/HCPCS: 87804; 99284

== ENCOUNTER 2021-03-20 13:43 | Emergency (ER) | payer SELFPAY ==
[~2021-03-20] VITALS: Ht 165.1 cm; Wt 111.9 kg
[~2021-03-20 13:43] MED LIST changes: -DOXY100C2 PO; +DOXY100C3 PO
[2021-03-20] MEDS ORDERED: LIDOCAINE 1% Multi-Dose 20 ML VIAL. INJ ONE (14:45)
[2021-03-20] MEDS ORDERED: CEPH500C PO (15:26)
[2021-03-20] MEDS ORDERED: TRAM50TA PO (15:26)
--- NOTE | 2021-03-20 15:28 | PHYS DOC ---
Past Medical History Past Medical History: No Pertinent History Additional Past Medical Histor: ovarian cysts (COLIN HERNANDEZ APRN) Past Surgical History: Other Additional Past Surgical Histo: I & D FOR BARTHOLIN CYST (COLIN HERNANDEZ APRN) Smoking Status: Current Every Day Smoker Alcohol Use: Occasionally Drug Use: None (COLIN HERNANDEZ APRN) General Adult EDM: Chief Complaint: VAGINAL PROBLEM HPI: HPI: Patient is a 30 year old female who presents with right-sided pubic abscess x4 days. She has a history of Bartholin cyst. Denies fever, Abdominal pain, nausea, vomiting, diarrhea. Rates her pain an burning nonradiating 8 out of 10. (COLIN HERNANDEZ APRN) Review of Systems: Review of Systems: Constitutional: Denies fever or chills. [] Eyes: Denies change in visual acuity. [] HENT: Denies nasal congestion or sore throat. [] Respiratory: Denies cough or shortness of breath. [] Cardiovascular: Denies chest pain or edema. [] GI: Denies abdominal pain, nausea, vomiting, bloody stools or diarrhea. [] : Denies dysuria. [] Musculoskeletal: Denies back pain or joint pain. +Pubic pain[] Integument: Denies rash. +Abscess[] Neurologic: Denies headache, focal weakness or sensory changes. [] Endocrine: Denies polyuria or polydipsia. [] Lymphatic: Denies swollen glands. [] Psychiatric: Denies depression or anxiety. [] (COLIN HERNANDEZ APRN) Heart Score: C/O Chest Pain: No (COLIN HERNANDEZ APRN) Current Medications: Current Medications Medications (Trade) Dose Ordered Sig/Martir Start Time Stop Time Status Last Admin Dose Admin Lidocaine HCl (Lidocaine 1% 20ml Vial) 20 ml 1X ONCE 03/20/21 14:45 03/20/21 14:49 DC 03/20/21 15:15 20 ML (COLIN HERNANDEZ PEST CONTROL CHEMICAL TECHNICIAN) Allergies: Allergies: Allergies Coded Allergies Type Severity Reaction Last Updated Verified sulfamethoxazole Allergy Intermediate Hives 12/06/17 Yes trimethoprim Allergy Intermediate Hives 12/06/17 Yes hydrocodone Adverse Reaction Intermediate Excessive vomiting. 12/06/17 Yes (COLIN HERNANDEZ PEST CONTROL CHEMICAL TECHNICIAN) Physical Exam: PE: Constitutional: Well developed, well nourished, no acute distress, non-toxic appearance. [] HENT: Normocephalic, atraumatic, bilateral external ears normal, oropharynx moist, no oral exudates, nose normal. [] Eyes: PERRLA, EOMI, conjunctiva normal, no discharge. [] Neck: Normal range of motion, no tenderness, supple, no stridor. [] Cardiovascular:Heart rate regular rhythm, no murmur [] Lungs & Thorax: Bilateral breath sounds clear to auscultation [] Abdomen: Bowel sounds normal, soft, no tenderness, no masses, no pulsatile masses. [] Skin: Warm, dry, no erythema, no rash. Right pubic abscess, egg sized, fluctuant[] Back: No tenderness, no CVA tenderness. [] Extremities: No tenderness, no cyanosis, no clubbing, ROM intact, no edema. [] Neurologic: Alert and oriented X 3, normal motor function, normal sensory function, no focal deficits noted. [] Psychologic: Affect normal, judgement normal, mood normal. [] (COLIN HERNANDEZ APRN) Current Patient Data: Vital Signs: Vital Signs Date Time Temp Pulse Resp B/P (MAP) Pulse Ox O2 Delivery O2 Flow Rate FiO2 03/20/21 14:23 98.3 90 16 178/109 (132) 98 Room Air 98.3 (COLIN HERNANDEZ APRN) EKG: EKG: [] (COLIN HERNANDEZ APRN) Radiology/Procedures: Radiology/Procedures: [] (COLIN HERNANDEZ APRN) Course & Med Decision Making: Course & Med Decision Making Pertinent Labs and Imaging studies reviewed. (See chart for details) See HPI. Alert and oriented x4. Ambulatory steady gait. Skin pink warm and dry. Abdomen soft and nontender. Afebrile. I&D Location: Right side pubic. Egg sized Anesthesia: 1% lidocaine Scalpel size: #11 Skin: raised, fluctuate, redness Drainage: Foul-smelling white drainage Packing: None Patient tolerated the procedure well with no complications. The area was prepped and draped in usual sterile fashion. Area was cleaned with chloehexidine prior to procedure. Return for signs and symptoms of infection education given. Patient to return in 48 hours for wound recheck. [] (COLIN HERNANDEZ APRN) Course & Med Decision Making I have reviewed and was available for consultation in the emergency department for this patient that was seen by midlevel provider. Agree with plan. Jude Funes DO (JUDE FUNES DO) Ruma Disclaimer: Ruma Disclaimer: This electronic medical record was generated, in whole or in part, using a voice recognition dictation system. (COLIN HERNANDEZ APRN) Departure Departure Impression: Primary Impression: Abscess Disposition: HOME / SELF CARE / HOMELESS Condition: STABLE Referrals: NO PCP (PCP) Patient Instructions: Abscess, Abscess, Care After, Sitz Bath Additional Instructions: Follow-up with primary care provider. Drink plenty of fluids. Take medication as prescribed and with food. If you begin running a fever or not getting better return emergency room. Scripts Tramadol Hcl (TRAMADOL HCL) 50 Mg Tablet 50 MG PO Q6HRS PRN for PAIN, #10 TAB Prov: COLIN HERNANDEZ APRN 03/20/21 Cephalexin (KEFLEX) 500 Mg Capsule 1 CAP PO QID, #40 CAP Prov: COLIN HERNANDEZ APRN 03/20/21 COLIN HERNANDEZ APRN Mar 20, 2021 15:27 JUDE FUNES DO Mar 21, 2021 06:12
[2021-03-20] MEDS ORDERED: traMADol 50 MG TABLET PO ONE (15:30)
[2021-03-20 16:03] VITALS: BP 164/105
== END 2021-03-20 16:03 | disposition home or self-care (01) ==
LOC: ER 13:43
DX: N76.4 Abscess of vulva (principal); F17.200 Nicotine dependence, unspecified, uncomplicated; Z88.1 Allergy status to other antibiotic agents; Z88.2 Allergy status to sulfonamides; Z88.5 Allergy status to narcotic agent
CPT/HCPCS: 56405; 99284; J3490; 10060; 99283